=== PATIENT | female | born 1970 | race Two or more races ===

== ENCOUNTER 2020-11-17 10:56 | Emergency (ER) | payer BC ==
[~2020-11-17] VITALS: Ht 167.6 cm; Wt 68.0 kg
[2020-11-17] MEDS ORDERED: DRIZALMA SPRINK20 MG PO (11:06)
[2020-11-17] MEDS ORDERED: FORTAMET500 MG PO (11:06)
[2020-11-17] MEDS ORDERED: ATORVASTATIN CA10 MG PO (11:07)
[2020-11-17] MEDS ORDERED: NEXIUM10 MG PO (11:07)
== END 2020-11-17 15:27 | disposition home or self-care (01) ==
LOC: ER 10:56
DX: S80.01XA Contusion of right knee, initial encounter (principal); W22.8XXA Striking against or struck by other objects, initial encounter; Y93.89 Activity, other specified; Y92.092 Bedroom in other non-institutional residence as the place of occurrence of the external cause; Y99.8 Other external cause status